=== PATIENT | female | born 1995 | race Caucasian/White ===

== ENCOUNTER → 2016-11-23 | Outpatient (CLI) | payer MEDICAID, OTHER ==
--- NOTE | 2016-11-23 13:20 | Diagnostic Imaging Report ---
INDICATION: survey. TECHNIQUE: Multiple real-time grayscale images were obtained over the gravid uterus. COMPARISON: None FINDINGS: There is a single intrauterine with heart rate of 146 beats per minutes. The cervix is 4 cm in length and is closed. Adequate amniotic fluid is seen. anatomy evaluation demonstrates four-chamber view, the urinary bladder, cord insertion, the kidneys, the posterior fossa, and the lateral ventricles, without definite abnormality. The spine appear unremarkable. There is suggestion of two umbilical arteries around the bladder. Biometrical measurements are as follows: Biparietal 5.0 cm, age 21 weeks 2 days. Head circumference 19.2 cm, age 21 weeks 4 days. Abdominal circumference 17.3 cm, age 22 weeks 2 days. Femur length 4.1 cm, age 23 weeks 3 days. Sonographic estimate age: 22 weeks 1 days. Sonographic estimated date of delivery: 03/28/17. This compares to current gestational age of 21 weeks and 5 days based on assigned DANDRE of 03/31/2017. Estimated Weight: 512 gm (+/- 75 gm). LMP percentile: 84%. heart rate: 146 beats per minute. number: 1 of 1. IMPRESSION: Live intrauterine . Completed survey. Dictated by: Dictated on workstation # [id number]
== END ==
LOC: RAD 09:54
PROVIDERS: ATTEND Obstetrics & Gynecology
DX: Z34.92 Encounter for supervision of normal pregnancy, unspecified, second trimester (principal); Z36 Encounter for antenatal screening of mother
CPT/HCPCS: 76805

== ENCOUNTER → 2017-01-18 | Outpatient (CLI) | payer MEDICAID ==
--- NOTE | 2017-01-18 16:35 | Diagnostic Imaging Report ---
INDICATION: Size and date discrepancy. EXAMINATION: OB sonography performed in routine fashion and compared with prior study of 11/23/2016. FINDINGS: A single live intrauterine fetus is seen measuring 31 weeks 2 days in size by composite measurements. Fetus is in breech presentation at this time. Placenta is grade 1 and anterior with no evidence of previa. Biometrical measurements are as follows: Biparietal 7.79 cm, age 31 weeks 2 days. Head circumference 28.59 cm, age 31 weeks 3 days. Abdominal circumference 26.44 cm, age 30 weeks 4 days. Femur length 6.08 cm, age 31 weeks 5 days. Sonographic estimate age: 31 weeks 2 days. Sonographic estimated date of delivery: 03/20/17. Estimated Weight: 1685 gm (+/- 246 gm). LMP percentile: 83%. heart rate: 172 beats per minute. number: 1 of 1. IMPRESSION: Single live intrauterine fetus measuring 31 weeks 2 days in size. This is about 11 days larger than expected compared to original clinical dates. This may be within variation of late , suggest continued followup as clinically warranted. There are no detectable abnormalities otherwise seen. Dictated by: Dictated on workstation # [id number]
== END ==
LOC: RAD 12:38
PROVIDERS: ATTEND Obstetrics & Gynecology
DX: O26.843 Uterine size-date discrepancy, third trimester (principal); Z3A.31 31 weeks gestation of pregnancy
CPT/HCPCS: 76816

== ENCOUNTER → 2017-03-10 | Outpatient (CLI) | payer OTHER, MEDICAID ==
--- NOTE | 2017-03-10 20:12 | Diagnostic Imaging Report ---
INDICATION: Size and dates discrepancy. TECHNIQUE: Multiple real-time grayscale images were obtained over the gravid uterus. COMPARISON: None FINDINGS: Canseco gestation is in cephalic position. The placenta is anterior with no abruption or previa. The largest vertical pocket of amniotic fluid is 3 cm, the index 6.4. The measurements correlate with age 37 weeks 2 days reflecting normal growth from initial. IMPRESSION: ZOILA is 6.9 at the lower limits of normal. Canseco gestation in cephalic position, no abruption or previa, measuring 37 week 2 days. Biometric measurements are congruent. Biometrical measurements are as follows: Biparietal 9.1 cm, age 37 weeks 0 days. Head circumference 32.3 cm, age 37 weeks 2 days. Abdominal circumference 33.1 cm, age 37 weeks 0 days. Femur length 7.4 cm, age 37 weeks 0 days. Sonographic estimate age: 37 weeks 2 days. Sonographic estimated date of delivery: 03/31/17. Estimated Weight: 3132 gm (+/- 457 gm). LMP percentile: 61%. heart rate: 147 beats per minute. number: 1 of 1. Dictated by: Dictated on workstation # [id number]
== END ==
LOC: RAD 11:20
PROVIDERS: ATTEND Obstetrics & Gynecology
DX: O26.843 Uterine size-date discrepancy, third trimester (principal); Z3A.37 37 weeks gestation of pregnancy
CPT/HCPCS: 76816

== ENCOUNTER → 2017-03-30 | Outpatient (CLI) | payer OTHER, MEDICAID ==
[~2017-03-30] MED LIST: PREN1TAB86 PO
--- NOTE | 2017-03-30 11:47 | Diagnostic Imaging Report ---
INDICATION: History of oligohydramnios. TECHNIQUE: The fetus was observed by the chaplain for purposes of a nonstress biophysical profile evaluation. FINDINGS: Intrauterine is currently in a breech presentation. The placenta is along the anterior aspect without evidence for previa. cardiac activity at 129 beats per minute. Low amount of amniotic fluid with an index at 4.3 cm. Biophysical Profile Scoring: breathin Body movement: 2 tone: 2 Amniotic fluid: 2 Total BPP Score: 8/8 IMPRESSION: 1. Presence of oligohydramnios, decreased from prior imaging with an otherwise normal biophysical profile score. FINDINGS provided by the chaplain at time of the examination. Dictated by: Dictated on workstation # [id number]
== END ==
LOC: RAD 11:06
PROVIDERS: ATTEND Obstetrics & Gynecology
DX: Z3A.00 Weeks of gestation of pregnancy not specified; O41.03X0 Oligohydramnios, third trimester, not applicable or unspecified
CPT/HCPCS: 76805; 76819

== ENCOUNTER → 2019-05-29 | Outpatient (CLI) | payer MEDICAID ==
[~2019-05-29] MED LIST changes: +IBUP-1773 PO
--- NOTE | 2019-05-29 15:29 | Diagnostic Imaging Report ---
INDICATION: survey. TECHNIQUE: Multiple real-time grayscale images were obtained over the gravid uterus. COMPARISON: None. FINDINGS: There is a single live fetus in a cephalic presentation. heart rate was recorded at 150 BPM. Placenta is anterior. Amniotic fluid volume is normal. Cervical length is 5.7 cm. The kidneys, bladder, and stomach are unremarkable. brain is unremarkable. There is a four-chamber heart. There is a three-vessel cord with normal insertion. spine is unremarkable. Biometrical measurements are as follows: Biparietal 4.47 cm, age 19 weeks 4 days. Head circumference 16.32 cm, age 19 weeks 1 days. Abdominal circumference 14.70 cm, age 20 weeks 0 days. Femur length 3.16 cm, age 19 weeks 6 days. Sonographic estimate age: 19 weeks 5 days. Sonographic estimated date of delivery: 10/18/2019. Estimated Weight: 315 gm (+/- 46 gm). LMP percentile: 51%. heart rate: 150 beats per minute. number: 1 of 1. IMPRESSION: Single live IUP of approximately 19 weeks 5 days gestational age. Estimated date of confinement sonographically is 10/18/2019. Dictated by: Dictated on workstation # [id number]
== END ==
LOC: RAD 11:25
PROVIDERS: ATTEND Obstetrics & Gynecology
DX: O34.82 Maternal care for other abnormalities of pelvic organs, second trimester (principal); N83.209 Unspecified ovarian cyst, unspecified side; Z3A.19 19 weeks gestation of pregnancy
CPT/HCPCS: 76805

== ENCOUNTER → 2019-08-29 | Outpatient (CLI) | payer MEDICAID ==
--- NOTE | 2019-08-29 16:57 | Diagnostic Imaging Report ---
INDICATION: 23-year-old female, gestational diabetes. Evaluation of growth. COMPARISON: March 10, 2017. January 18, 2017. May 29, 2019. TECHNIQUE: Multiple real-time grayscale images were obtained over the gravid uterus. FINDINGS: The cervical length measures 5.2 cm. The cervix appears closed. There is no demonstrated placenta previa. The placenta is anterior. There is a single living intrauterine in transverse presentation. heart rate is demonstrated at 144 bpm. There is visualization of the stomach. The amniotic fluid index measures 17 which is within normal limits. There is an unremarkable four-chamber view of the heart. There are no additional images of the anatomy. Estimated weight based on today's ultrasound measurements is 2390 g which is at the 83rd percentile. Estimated gestational age based on first ultrasound measurements is 32 weeks and 6 days. This is an estimated delivery date of October 18, 2019. Biometrical measurements are as follows: Biparietal 8.76 cm, age 35 weeks 3 days. Head circumference 31.70 cm, age 35 weeks 5 days. Abdominal circumference 29.95 cm, age 34 weeks 0 days. Femur length 6.61 cm, age 34 weeks 1 days. Estimated Weight: 2390 gm (+/- 349 gm). LMP percentile: 83%. heart rate: 144 beats per minute. number: 1 of 1. IMPRESSION: 1. Single living intrauterine in transverse presentation. 2. measurements as above. 3. Normal amniotic fluid index. Dictated by: Dictated on workstation # [id number]
== END ==
LOC: RAD 15:05
PROVIDERS: ATTEND Obstetrics & Gynecology
DX: O36.63X0 Maternal care for excessive fetal growth, third trimester, not applicable or unspecified (principal); O16.3 Unspecified maternal hypertension, third trimester; O26.03 Excessive weight gain in pregnancy, third trimester; Z3A.32 32 weeks gestation of pregnancy
CPT/HCPCS: 76816

== ENCOUNTER 2019-09-08 19:55 | Outpatient (CLI) | payer MEDICAID ==
[~2019-09-08] VITALS: Ht 162 cm; Wt 104.3 kg
--- NOTE | 2019-09-08 19:55 | NUR ---
BENIGNO LEE presented to unit via from ED, accompanied by , with c/o HIGH BP. BENIGNO LEE weighed, gowned, voided, and to bed. EFHM and TOCO applied, VS taken. BENIGNO LEE oriented to bed controls, call light, TV, heat, and A/C controls.
--- NOTE | 2019-09-08 20:20 | NUR ---
notified of pt's arrival and exam. New orders received.
[2019-09-08 20:21] VITALS: BP 128/72
[2019-09-08 20:32] LABS: BILIRUBIN,URINE NEGATIVE (NEGATIVE); CLARITY,URINE CLEAR; COLOR,URINE YELLOW; GLUCOSE, URINE (UA) NEGATIVE (NEGATIVE); KETONES,URINE NEGATIVE (NEGATIVE); LEUKOCYTE ESTERASE ,URINE NEGATIVE (NEGATIVE); NITRITE,URINE NEGATIVE (NEGATIVE); PROTEIN,URINE NEGATIVE (NEGATIVE)
[2019-09-08 20:38] LABS: BACTERIA,URINE TRACE /HPF; WBC,URINE RARE /HPF
[2019-09-08 20:47] LABS: URINE CREATININE FOR RATIO 20 MG/DL (30-125); URINE PROTEIN FOR RATIO ONLY < 6 MG/DL (6-12)
[2019-09-08 20:48] VITALS: BP 128/72
[2019-09-08] MEDS ORDERED: pepcid (20:53)
--- NOTE | 2019-09-08 21:05 | NUR ---
Discharge instructions verbalized with pt. Labor precautions given. Pt verbalized understanding. Pt will follow up in clinic with
== END 2019-09-08 21:05 | disposition home or self-care (01) ==
LOC: LDRP 19:55 → WSo 19:55
PROVIDERS: ATTEND Obstetrics & Gynecology
DX: O26.899 Other specified pregnancy related conditions, unspecified trimester (principal)
CPT/HCPCS: 81000; 82570; 84156; 87088; 99212

== ENCOUNTER → 2019-10-09 | Outpatient (CLI) | payer MEDICAID ==
[~2019-10-09] MED LIST changes: +pepcid
--- NOTE | 2019-10-09 12:04 | Diagnostic Imaging Report ---
INDICATION: Evaluate growth. TECHNIQUE: Multiple real-time grayscale images were obtained over the gravid uterus. COMPARISON: 08/29/2019. FINDINGS: There is a single live fetus in a cephalic presentation. heart rate was recorded at 143 bpm. Placenta is anterior. Amniotic fluid index is 12.5 cm. Cervical length is 4.5 cm. Biometrical measurements are as follows: Biparietal 9.53 cm, age 39 weeks 0 days. Head circumference 33.67 cm, age 38 weeks 5 days. Abdominal circumference 37.46 cm, age 41 weeks 3 days. Femur length 7.34 cm, age 37 weeks 4 days. Sonographic estimate age: 39 weeks 2 days. Sonographic estimated date of delivery: 10/14/19. Estimated Weight: 3954 gm (+/- 577 gm). LMP percentile: 91%. heart rate: 143 beats per minute. number: 1 of 1. IMPRESSION: Single live IUP approximately 39 weeks gestational age showing normal interval growth when compared with prior exam. No complicating features are detected. Dictated by: Dictated on workstation # [id number]
== END ==
LOC: RAD 08:28
PROVIDERS: ATTEND Obstetrics & Gynecology
DX: O13.3 Gestational [pregnancy-induced] hypertension without significant proteinuria, third trimester (principal); O32.2XX0 Maternal care for transverse and oblique lie, not applicable or unspecified; Z3A.39 39 weeks gestation of pregnancy
CPT/HCPCS: 76816

== ENCOUNTER 2019-10-16 19:43 | Inpatient (IN) | payer MEDICAID ==
[~2019-10-16] VITALS: Ht 165.1 cm; Wt 109.0 kg
--- NOTE | 2019-10-16 19:48 | NUR ---
BENIGNO LEE presented to unit via ambulatory from ED, accompanied by so., with c/o INDUCED. BENIGNO LEE weighed, gowned, voided, and to bed. EFHM and TOCO applied, VS taken. BENIGNO LEE oriented to bed controls, call light, TV, heat, and A/C controls.
[2019-10-16 20:00] VITALS: BP 135/87
[2019-10-16] MEDS ORDERED: D5 LR IV SOLUTION 1,000 ML IV ONE (20:17)
--- NOTE | 2019-10-16 20:20 | NUR ---
Dr. Kendrick called, orders received.
[2019-10-16] MEDS ORDERED: LACTATED RINGERS 1,000 ML IV SCH (20:32)
--- NOTE | 2019-10-16 20:40 | NUR ---
IV attempts x6 per, elizabeth moyer rn, Rama Martines rn, Florecita Glynn rn, Wilbur Jonas rn.
[2019-10-16] MEDS ORDERED: MINERAL OIL CONCENTRATE 99.9% 15 ML UDC TOP PRN (20:45)
[2019-10-16] MEDS ORDERED: MISOPROSTOL 100 MCG (CYTOTEC) TAB PO ONE (20:45)
[2019-10-16] MEDS ORDERED: TERBUTALINE INJ 1 MG/ML (BRETHINE) AMP SC PRN (20:45)
[2019-10-16] MEDS ORDERED: ZOLPIDEM 5 MG (AMBIEN) TAB PO ONE (21:00)
--- NOTE | 2019-10-16 21:19 | NUR ---
Krishna Oliveros here at bedside for IV start.
[2019-10-16] MEDS ORDERED: LACTATED RINGERS 1,000 ML IV ONE (21:24)
[2019-10-16] MEDS: D5 LR IV SOLUTION 1,000 ML IV SCH (21:27)
[2019-10-16 21:55] VITALS: BP 142/84
[2019-10-16 21:55] LABS: BASOPHILS % (AUTO) 0 % (0-10); EOSINOPHILS # (AUTO) 0.1 10^3/uL (0.0-0.3); EOSINOPHILS % (AUTO) 1 % (0-10); HEMATOCRIT 33 % (35-52); HEMOGLOBIN 10.8 G/DL (11.5-16.0); LYMPHOCYTES # (AUTO) 3.4 X 10^3 (1.0-4.0); LYMPHOCYTES % (AUTO) 20 % (12-44); MEAN CORPUSCULAR HEMOGLOBIN 25 PG (25-34); MEAN CORPUSCULAR HGB CONC 32 G/DL (32-36); MEAN CORPUSCULAR VOLUME 76 FL (80-99); MEAN PLATELET VOLUME 12.5 FL (7.4-10.4); MONOCYTES # (AUTO) 1.2 X 10^3 (0.0-1.0); MONOCYTES % (AUTO) 7 % (0-12); NEUTROPHILS # (AUTO) 11.8 X 10^3 (1.8-7.8); NEUTROPHILS % (AUTO) 71 % (42-75); PLATELET COUNT 187 10^3/uL (130-400); RED CELL DISTRIBUTION WIDTH 14.9 % (10.0-14.5); WHITE BLOOD COUNT 16.6 10^3/uL (4.3-11.0)
[2019-10-16] MEDS: CATHETER FLUSH 10 ML SYR IV SCH (22:11)
[2019-10-16 22:50] VITALS: BP 140/66
[2019-10-17] VITALS (51 sets, daily range): BP systolic 103–145; BP diastolic 55–91
[2019-10-17] MEDS: MISOPROSTOL 100 MCG (CYTOTEC) TAB PO SCH ×2 (02:07→06:17)
[2019-10-17] MEDS ORDERED: morphine INJ 10 MG/ML 1ML (SYR OR VIAL) IVP PRN (02:15)
--- NOTE | 2019-10-17 02:45 | Anesthesia-Procedure Note ---
Procedures/Interventions Procedure Start/Stop/Diagnosis Date of Procedure: Oct 16, 2019 Start Time: 21:20 Referring Physician: nicole Preprocedural Diagnosis: labor induction Brief History called to OB for IV start, RN's had tried multiple times without success. Pt advised she was a difficult stick. #20 g started Rt wrist x1 attempt with alcohol prep. Secured with op site and report to RN. Stop Time: 21:28 Postprocedural Diagnosis: labor induction Central Line/IV Access IV : Location: Right Site: Wrist IV Catheter Type: Peripheral IV IV Catheter Gauge: 20 KAELYN GRANDA CRNA Oct 17, 2019 02:44
[2019-10-17] MEDS: CATHETER FLUSH 10 ML SYR IV SCH (06:17)
[2019-10-17] MEDS: D5 LR IV SOLUTION 1,000 ML IV SCH ×2 (06:17→13:42)
--- NOTE | 2019-10-17 06:40 | NUR ---
dr. rivera called to floor and pt may have regular diet if no cervical change.
[2019-10-17] MEDS ORDERED: OXYTOCIN PRE-MIX DRIP 500 ML IV ONE (09:40)
[2019-10-17] MEDS ORDERED: fentaNYL 2 mcg/ml BUPIVA 0.125 100 ML ONE (09:54)
[2019-10-17] MEDS ORDERED: fentaNYL INJECTION 100 MCG/2 ML AMP ONE (10:29)
[2019-10-17] MEDS ORDERED: LIDOCAINE PF 2% 5 ML (XYLOCAINE) VIAL ONE (10:29)
[2019-10-17] MEDS ORDERED: BUPIVACAINE 0.25% 30 ML (SENSORCAINE) VIAL ONE (10:29)
[2019-10-17] MEDS ORDERED: LACTATED RINGERS 1,000 ML IV SCH (10:33)
--- NOTE | 2019-10-17 10:36 | NUR ---
1036 ERIN JONES [employer] here for epidural placement. Procedure explained, consent reviewed and signed by anesthesia. Questions answered to patient's satisfaction. Time out taken to verify correct patient/procedure.1041 Patient up to side of bed, assisted into sitting position. 1044 Betadine prep done x3 and sterile drape applied. 1047 Local done, see anesthesia record. 1050 Test dose given, see anesthesia record for drug and dosage. Epidural catheter secured in place. Epidural placement complete. 1055 Assisted back into bed, monitors adjusted. Epidural dosed, see anesthesia record. 1057 Epidural of Sufenta/Bupvicaine @12cc/hr stated per pump. Patient tolerated procedure well.
[2019-10-17] MEDS ORDERED: EPIDURAL (fentaNYL 2 MCG/ML BUPIVA 0.125%)100 ML BAG EPI PRN (10:45)
[2019-10-17] MEDS ORDERED: ONDANSETRON 4 MG/2 ML (SDV) Z0FRAN IV PRN (10:45)
[2019-10-17] MEDS ORDERED: NALOXONE 0.4 MG/ML 1 ML (NARCAN) VIAL IV PRN (10:45)
[2019-10-17] MEDS ORDERED: diphenhydrAMINE 50 MG/ML INJ (BENADRYL) IV PRN (10:45)
[2019-10-17] MEDS ORDERED: OXYTOCIN PRE-MIX DRIP 500 ML IV SCH ×2 (11:36→15:14)
[2019-10-17] MEDS ORDERED: LIDOCAINE/EPI 2% 1:200,00 (XYLOCAINE) 10 ML VIAL ONE (14:45)
[2019-10-17] MEDS ORDERED: MEASLES,MUMPS,RUBELLA 1 EA INJ SQ ONE (15:15)
[2019-10-17] MEDS ORDERED: WITCH HAZEL(TUCKS) 40 EA JAR TOP PRN (15:15)
[2019-10-17] MEDS ORDERED: TETANUS,DIPTH,PERTUSS P/F (BOOSTRIX) 0.5 ML VIAL IM ONE (15:15)
[2019-10-17] MEDS ORDERED: BENZOCAINE/MENTHOL (DERMOPLAST) 60 ML CAN TP PRN (15:15)
[2019-10-17] MEDS ORDERED: diphenhydrAMINE 50 MG/ML INJ (BENADRYL) IVP ONE (15:30)
--- NOTE | 2019-10-17 16:54 | OB Labor & Delivery Record ---
Vag Delivery Note Vag Delivery Note Date of Delivery: 10/17/19 Preoperative Diagnosis: Vinay Corona is a 23 /Para 3/2 ,Gestational Age 39 6/7 weeks; gestational hypertension Postoperative Diagnosis: Same Surgeon: TAMELA KOLB Anesthesia: epidural Delivery Type: vaginal Findings: Viable male infant, apgars 8/9, weight pending Lacerations: none Intact placenta with 3 vessel cord. No nuchal cord, body cord or shoulder dystocia Estimated Blood Loss: 150ml Complications: None Condition: Stable Description of Procedure: The patient is a 23 year old female who presented for induction of labor. Blood pressures had been elevated with mild proteinuria. She was admitted and informed consent was obtained. Her labor course was remarkable for AROM and augmentation. She progressed to complete dilatation and began to push. She was then set up for delivery. The 's head was delivered atraumatically in the OA position. The shoulders and remainder of the infant's body were then delivered without difficulty. Upon delivery, the head was held below the level of the perineum and the mouth and nares were bulb suctioned. The cord was doubly clamped and cut and the infant was handed off to the pediatric staff. An intact placenta with 3-vessel cord delivered via Tila and there was found to be minimal bleeding.~ Vigorous fundal massage was performed and the fundus was found to be firm. IV oxytocin was given. Examination of the vagina and perineum revealed no laceration. Following the delivery, sponge, instrument and needle counts were correct. Mom and baby were both in stable condition in the labor suite. Vitals - Labs Vital Signs - I&O Vital Signs Date Time Temp Pulse Resp B/P (MAP) Pulse Ox O2 Delivery O2 Flow Rate FiO2 10/17/19 10:00 36.4 74 18 136/83 (100) Room Air 10/17/19 09:00 72 18 137/89 (105) Room Air 10/17/19 08:21 36.5 75 18 125/79 (94) 98 Room Air 10/17/19 05:30 36.0 74 16 116/73 (87) Room Air 10/17/19 02:00 35.3 60 18 143/73 (96) Room Air 10/16/19 22:50 36.1 70 16 140/66 (90) Room Air 10/16/19 21:55 71 18 142/84 (103) Room Air 10/16/19 20:00 36.8 87 20 135/87 (103) 98 Room Air 10/16/19 20:00 36.8 87 20 98 Room Air I & O 10/17/19 07:00 Intake Total 2000 ml Balance 2000 ml Labs Laboratory Tests 10/16/19 21:45: White Blood Count 16.6H, Red Blood Count 4.37, Hemoglobin 10.8L, Hematocrit 33L, Mean Corpuscular Volume 76L, Mean Corpuscular Hemoglobin 25, Mean Corpuscular Hemoglobin Concent 32, Red Cell Distribution Width 14.9H, Platelet Count 187, Mean Platelet Volume 12.5H, Neutrophils (%) (Auto) 71, Lymphocytes (%) (Auto) 20, Monocytes (%) (Auto) 7, Eosinophils (%) (Auto) 1, Basophils (%) (Auto) 0, Neutrophils # (Auto) 11.8H, Lymphocytes # (Auto) 3.4, Monocytes # (Auto) 1.2H, Eosinophils # (Auto) 0.1, Basophils # (Auto) 0.0 TAMELA KOLB DO Oct 17, 2019 16:53
[2019-10-17] MEDS: IBUPROFEN 600 MG (MOTRIN) TAB PO SCH ×2 (17:06→23:41)
--- NOTE | 2019-10-17 17:30 | NUR ---
CONTINUES TO CARE FOR . PAD CHANGE WITH DERMAPLAST AND TUCKS APPLIED. WAITING TO EAT DINNER.
--- NOTE | 2019-10-17 17:45 | NUR ---
FF U/1. VAG FLOW LT/MOD RUBRA.
--- NOTE | 2019-10-17 18:15 | NUR ---
EATING DINNER. PLAN TO MOVE TO ROOM AFTER DINNER. RIGHT LEG CONTINUES TO BE SLIGHTLY NUMB. FF U/1. VAG FLOW LT/MOD RUBRA.
--- NOTE | 2019-10-17 18:50 | NUR ---
UP TO THE BATHROOM VIA W/C. +VOID. PERICARE PERFORMED. ICE PACK PLACED. FF U/1. VAG FLOW LT/MOD RUBRA.
--- NOTE | 2019-10-17 19:15 | NUR ---
TRANSFERRED TO ROOM 310 VIA IN STABLE CONDITION ACC BY THIS RN. SPOUSE PUSHING INFANT IN OPEN CRIB. ORIENTED TO SURROUNDINGS. CALL LIGHT OPERATION AND MENU. FF U/1. VAG FLOW LT/MOD RUBRA.
[2019-10-17] MEDS: ACETAMINOPHEN 500 MG TAB (TYLENOL) PO SCH (20:27)
[2019-10-17] MEDS: DOCUSATE SODIUM 100 MG (COLACE) CAP PO SCH (20:27)
[2019-10-17] MEDS ORDERED: CATHETER FLUSH 10 ML SYR IV SCH (22:00)
[2019-10-18 05:40] VITALS: BP 103/62
[2019-10-18] MEDS: ACETAMINOPHEN 500 MG TAB (TYLENOL) PO SCH ×2 (05:43→11:59)
[2019-10-18] MEDS: IBUPROFEN 600 MG (MOTRIN) TAB PO SCH ×2 (05:44→11:59)
[2019-10-18 06:41] LABS: BASOPHILS % (AUTO) 0 % (0-10); EOSINOPHILS # (AUTO) 0.2 10^3/uL (0.0-0.3); EOSINOPHILS % (AUTO) 1 % (0-10); HEMATOCRIT 32 % (35-52); HEMOGLOBIN 10.1 G/DL (11.5-16.0); LYMPHOCYTES # (AUTO) 2.7 X 10^3 (1.0-4.0); LYMPHOCYTES % (AUTO) 18 % (12-44); MEAN CORPUSCULAR HEMOGLOBIN 25 PG (25-34); MEAN CORPUSCULAR HGB CONC 32 G/DL (32-36); MEAN CORPUSCULAR VOLUME 77 FL (80-99); MEAN PLATELET VOLUME 12.6 FL (7.4-10.4); MONOCYTES # (AUTO) 1.1 X 10^3 (0.0-1.0); MONOCYTES % (AUTO) 7 % (0-12); NEUTROPHILS # (AUTO) 10.8 X 10^3 (1.8-7.8); NEUTROPHILS % (AUTO) 73 % (42-75); PLATELET COUNT 165 10^3/uL (130-400); WHITE BLOOD COUNT 14.7 10^3/uL (4.3-11.0)
[2019-10-18] MEDS ORDERED: PRENATAL VITAMIN 1 EA TAB PO SCH (07:00)
[2019-10-18] MEDS ORDERED: FERROUS SULF 325 MG (IRON) TAB PO SCH (08:00)
--- NOTE | 2019-10-18 08:11 | Anesthesia-Regional Post-Op ---
Regional Patient Condition Mental Status: Alert, Oriented x3 Circulation: Same as Pre-Op Headache: Absent Sensation: Full Recovery Motor Block: Absent Post Op Complications Complications None Follow Up Care/Instructions Patient Instructions None needed. Anesthesia/Patient Condition Patient is doing well, no complaints, stable vital signs, no apparent adverse anesthesia problems. No complications reported per nursing. CHRISTIAN LAUREN CRNA Oct 18, 2019 08:11
[2019-10-18] MEDS: DOCUSATE SODIUM 100 MG (COLACE) CAP PO SCH (09:27)
[2019-10-18 09:30] VITALS: BP 106/61
[2019-10-18] MEDS ORDERED: ACET-93 PO (12:49)
[2019-10-18] MEDS ORDERED: IBUP-844 PO (12:49)
--- NOTE | 2019-10-18 12:53 | Discharge Inst-Women's Service ---
Discharge Inst-Women's Serv Depart Medication/Instructions New, Converted or Re-Newed RX: Call to Patients Pharmacy (please call to pharmacy of choice) Final Diagnosis vaginal delivery Problems Reviewed?: Yes Consults/Follow Up Additional Follow Up: Yes (6 weeks for post exam) Activity Activity: Activity as Tolerated Driving Instructions: You May Drive NO SMOKING: NO SMOKING Nothing Inside Vagina: No Douching, No [place], No Tampons Diet Discharge Diet: No Restrictions Symptoms to Report to : Swelling Increased, Bleeding Excessive, Pain Increased, Fever Over 101 Degrees F, Vaginal Bleeding Increase, Cramps in Feet or Legs, Vaginal Discharge Foul For Any Problems or Questions: Contact Your Physician TAMELA KOLB DO Oct 18, 2019 12:53
[2019-10-18 14:00] VITALS: BP 127/82
--- NOTE | 2019-10-18 14:26 | NUR ---
REPORT TO TELMA VALENCIA
--- NOTE | 2019-10-18 17:40 | NUR ---
Discharge instructions explained to pt with copy provided to pt. Pt notified of follow up appointment. Pt refused for prescriptions to be called in, will just take OTC ibuprofen and tylenol at home. Also refused current ibuprofen and tylenol admin. Pt verbalizes understanding of instructions and signs to verify. Denies questions or concerns at this time.
--- NOTE | 2019-10-18 18:40 | NUR ---
Pt ambulates off unit to private vehicle accompanied by RN, S.o. and with all personal belongings. No s/s of distress noted.
== END 2019-10-18 18:40 | disposition home or self-care (01) | DRG 807 ==
LOC: LDRP 19:43
PROVIDERS: ADMIT Obstetrics & Gynecology; ATTEND Obstetrics & Gynecology
PROC: 3E0DXGC Introduction of Other Therapeutic Substance into Mouth and Pharynx, External Approach (ICD-10-PCS; 2019-10-16)
PROC: 10E0XZZ Delivery of Products of Conception, External Approach (ICD-10-PCS; principal; 2019-10-17)
DX: O13.4 Gestational [pregnancy-induced] hypertension without significant proteinuria, complicating childbirth (principal); Z37.0 Single live birth; Z3A.39 39 weeks gestation of pregnancy
CPT/HCPCS: 36415; 85025; 86850; 86900; 86901; 88307